=== PATIENT | male | born 1975 | race Caucasian/White ===

== ENCOUNTER 2020-06-04 21:47 | Emergency (ER) | payer SELFPAY ==
[2020-06-04 22:02] VITALS: BP 123/88; PULSE 119; RESP 12; TEMP 37.1; O2SAT 99; BMI 27.7
--- NOTE | 2020-06-04 22:02 | ED_ITS ---
HPI - General Adult General Chief complaint: Dental/Oral Stated complaint: TOOTH ABSCESS LEFT SIDE Time Seen by Provider: 06/04/20 22:02 Source: patient Mode of arrival: Ambulatory Limitations: no limitations History of Present Illness HPI narrative: Patient is a 44-year-old male here for evaluation what he thinks is a dental abscess on his left lower jaw. He has been taking penicillin for the past 3 days. He states this was left over from a prior dental infection. He has had a history of osteomyelitis in the past. He also took 1 of his friend's oxycodone for the discomfort. Denies any fevers. No problems swallowing. Related Data Previous Rx's Medication Instructions Recorded clindamycin HCl 300 mg PO QID 7 Days #28 cap 06/04/20 Allergies Allergy/AdvReac Type Severity Reaction Status Date / Time No Known Drug Allergies Allergy Verified 06/04/20 22:04 Review of Systems Constitutional Constitutional: Denies fever(s) and Denies headache(s) ENT Ears, Nose, Mouth, and Throat: Reports facial pain, Denies headache(s) and Denies sore throat Comments: Left dental pain Cardiovascular Cardiovascular: Denies chest pain Integumentary/Breasts Skin/Breast: Denies lesions and Denies rash Neurologic Neurologic: Denies headache(s) Hematologic/Lymphatic On Anticoagulants: No Allergic/Immunologic Allergic/Immunologic: Denies urticaria Patient History Medical History Osteomyelitis of jaw Social History Smoking Status: Current every day smoker Exam Initial Vital Signs Initial Vital Signs: Vital Signs Temperature 98.8 F 06/04/20 22:02 Pulse Rate 119 H 06/04/20 22:02 Respiratory Rate 12 06/04/20 22:02 Blood Pressure 123/88 06/04/20 22:02 Pulse Oximetry 99 06/04/20 22:02 Const General: cooperative and comfortable Limitations: mental status not altered HENMT Head: normal to inspection and normocephalic Ears: TM's normal bilaterally Nose: external nose normal Face and sinus: no ecchymosis and edema (Left mandibular region) Mouth: moist mucous membranes and other (Abscess noted left lower buccal surface) Teeth and gingiva: fair dentition Neck Lymphatic: No lymphadenopathy Skin Lesions: no lesions Rashes: no rashes Neuro General: patient alert and patient awake Cognition: normal cognition Speech: speech normal Extrem General: capillary refill normal Procedures Abscess I/D I&D #1: Site: other (Dental) Side (if applicable): left Local Anesthetic: lidocaine 1% Amount of anesthesia used (mL): 2 Technique: incised with #11 blade Packing used?: none Course Orders Ordered: Discontinued Medications Clindamycin HCl (Clindamycin 150 Mg Capsule) 300 mg PO NOW ONE Stop: 06/04/20 22:47 Last Admin: 06/04/20 22:53 Dose: 300 mg Documented by: MADELIN Lidocaine HCl (Lidocaine 1% (Pf)) 2 ml INJ NOW ONE Stop: 06/04/20 22:03 Last Admin: 06/04/20 22:14 Dose: 2 ml Documented by: MADELIN Vital Signs Vital signs: Vital Signs - 8 hr 06/04/20 22:02 06/04/20 22:58 Temperature 98.8 F Pulse Rate 119 H 90 Respiratory Rate 12 16 Blood Pressure 123/88 133/76 Pulse Oximetry 99 98 Medical Decision Making [facility] Narrative Medical decision making narrative: Patient had a very obvious dental abscess left lower mandibular region. The skin located over the mandibular angle on the outside had no erythema. He was not having any respiratory issues. The abscess was drained here in the emergency department with return of a significant amount of purulent material. He has been on penicillin that he had left over from an infection several years ago. I will place him on clindamycin. He was given 1st dose here in the ER and a prescription for the remainder was electronically transmitted to the pharmacy of his choice. Informed him that he needed to take Tylenol/ibuprofen for any discomfort. I have some hesitance of given him any opioid medicines since he took a pill that was not prescribed to him per his report earlier today. He was given return precautions. He expressed understand ing and agreement. Discharge Plan Departure Patient Disposition: Home Clinical Impression: Dental abscess Instructions: Tooth Abscess Activity Restrictions/Additional Instructions: A prescription for antibiotics was electronically transmitted to [facility]. Please pick it up tomorrow and start taking it as directed. It is important that she may contact with a dentist in the area has you are going to need definitive dental treatment. Return to the emergency department for any new or worsening symptoms Prescriptions: New clindamycin HCl 300 mg capsule 300 mg PO QID 7 Days Qty: 28 RF: 0
[2020-06-04] MEDS: LIDOCAINE 1% (PF) 2 ML INJ (22:14)
[2020-06-04] MEDS: CLINDAMYCIN 150 MG CAPSULE 300 MG PO (22:53)
[2020-06-04 22:58] VITALS: BP 133/76; PULSE 90; RESP 16; O2SAT 98
== END 2020-06-04 23:05 | disposition home or self-care (01) ==
PROVIDERS: Emergency Provider Emergency Medicine
DX: K04.7 Periapical abscess without sinus (principal)
CPT/HCPCS: 10060; 99281; 99283